=== PATIENT | female | born 1990 | race Caucasian/White ===

== ENCOUNTER 2020-04-20 19:46 | Emergency (ER) | payer OTHER ==
[2020-04-20] MEDS ORDERED: Acetaminophen 500 MG Tab PO ONE (20:01)
[2020-04-20] MEDS ORDERED: Ibuprofen 600 MG Tab PO ONE (20:01)
--- NOTE | 2020-04-20 20:09 | EDM.PDOC ---
ED HPI GENERAL MEDICAL PROBLEM - General Chief Complaint: Upper Extremity Injury/Pain Stated Complaint: RIGHT HAND INJURY Time Seen by Provider: 04/20/20 19:50 Source of Information: Reports: Patient History Limitations: Reports: No Limitations - History of Present Illness INITIAL COMMENTS - FREE TEXT/NARRATIVE: This patient is a 29-year-old female with no pertinent past medical history presenting with injury to her right wrist. Around 1300 hrs. this afternoon, the patient was moving when she accidentally fell and landed on her right wrist with her entire body weight. She presents to the emergency department complaining of pain to the proximal ulnar aspect of the right wrist at the base of the fourth and fifth metacarpals. No self treatment prior to arrival. No other complaints. 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 Denies: Neck Pain, Shoulder Pain, Arm Pain, Back Pain Neurological: Denies: Numbness, Paresthesia, Tingling ED EXAM, GENERAL - Physical Exam Exam: See Below Free Text/Narrative:: Vital signs reviewed. Nursing notes reviewed. Constitutional: Awake, alert, non-distressed Head: Normocephalic, atraumatic Eyes: EOMI, conjunctiva normal, no discharge, no scleral icterus Ears, Nose, Throat: External ears and ears normal, moist oral mucosa Cardiovascular: 2+ right radial pulse, capillary refill less than 2 seconds Pulmonary: normal work of breathing, no accessory muscle use Abdomen/GI: Soft, nontender, nondistended, no guarding or rigidity, no masses Musculoskeletal: No deformities, mild tenderness to palpation over the proximal right fourth and fifth metacarpals and over the right ulnar styloid without gross deformity. No tenderness to palpation at the right anatomic snuffbox. Normal range of motion and movement of the right elbow and shoulder joint. Integumentary: Appropriate color for ethnicity, warm, dry, no pallor or jaundice , no rash Neurologic: Alert, answering questions appropriately, normal speech, no facial droop, moving all extremities well. Sensation intact to light touch to all fingers of the right hand, able to make okay sign, thumbs up, and abduct all fingers of the right hand. Psychiatric: Appropriate mood and affect, normal thought process ED TRAUMA EXTREMITY PROCEDURES - Splinting Right Upper Extremity Pre-Procedure NV Status: Normal Post-Procedure NV Status: Normal Splint Material: Fiberglass, Other (Ortho-Glass and Jefferson bandages) Splint Design: Volar Applied & Form Fitted By: Nurse Provider Post-Splint Application NV Check: NV Status Normal, Good Position Complications: Yes Course - Vital Signs Text/Narrative:: Patient hemodynamically stable, well-appearing, looks nontoxic. Neurovascularly intact in the affected extremity. Will obtain wrist series x- rays, given ibuprofen and acetaminophen. 2015: X-rays returned, concerning for a fracture to the proximal fifth metacarpal. Awaiting radiology read. 2028: X-rays returned showing a small fracture at the base of the fifth metacarpal. Will place a volar slab splint and JEFFERSON bandaging and plan to discharge home. Splinting is pending. 2055: Volar slab splint applied by nursing. CMS intact pre-and post splinting. Pain is well controlled. Patient is stable to discharge home with outpatient orthopedic surgery clinic follow-up in the next few weeks. Recommended over-the -counter extra strength acetaminophen and ibuprofen. Splint care instructions were provided along with ED return precautions. All questions were answered prior to being discharged in good condition. Last Recorded V/S: Last Vital Signs Temp 36.1 C 04/20/20 20:00 Pulse 90 04/20/20 20:00 Resp 18 04/20/20 20:00 BP 135/87 04/20/20 20:00 Pulse Ox 98 04/20/20 20:00 - Orders/Labs/Meds Orders: Active Orders 24 hr Category Date Time Status Splinting [RC] ASDIRECTED Care 04/20/20 20:26 Active Meds: Medications Discontinued Medications Generic Name Dose Route Start Last Admin Trade Name Freq PRN Reason Stop Dose Admin Acetaminophen 1,000 mg 04/20/20 20:01 04/20/20 20:21 Tylenol Extra Strength PO 04/20/20 20:02 1,000 mg ONETIME ONE Administration Ibuprofen 600 mg 04/20/20 20:01 04/20/20 20:21 Motrin PO 04/20/20 20:02 600 mg ONETIME ONE Administration Departure - Departure Time of Disposition: 20:57 Disposition: Home, Self-Care 01 Condition: Good Clinical Impression: Fracture of metacarpal bone Qualifiers: Encounter type: initial encounter Metacarpal bone: fifth Fracture type: closed Metacarpal location: base Fracture alignment: nondisplaced Laterality: right Qualified Code(s): S62.346A - Nondisplaced fracture of base of fifth metacarpal bone, right hand, initial encounter for closed fracture - Discharge Information *PRESCRIPTION DRUG MONITORING PROGRAM REVIEWED*: Not Applicable *COPY OF PRESCRIPTION DRUG MONITORING REPORT IN PATIENT KESHAWN: Not Applicable Instructions: Cast or Splint Care, Adult, [id number], Metacarpal Fracture, [id number] Referrals: [facility] - Orthopaedics [Provider Group] - 2 Weeks (For follow-up fracture care) Forms: ED Department Discharge Additional Instructions: I recommend [id number] acetaminophen and ibuprofen for pain. Please follow-up with the orthopedic surgery clinic in the next 1 to 2 weeks. Return to the emergency department immediately if you have worsening pain or any other concerns. The following information is given to patients seen in the emergency department who are being discharged to home. This information is to outline your options for follow-up care. We provide all patients seen in our emergency department with a follow-up referral. The need for follow-up, as well as the timing and circumstances, are variable depending upon the specifics of your emergency department visit. If you don't have a primary care physician on staff, we will provide you with a referral. We always advise you to contact your personal physician following an emergency department visit to inform them of the circumstance of the visit and for follow-up with them and/or the need for any referrals to a consulting specialist. The emergency department will also refer you to a specialist when appropriate. This referral assures that you have the opportunity for follow-up care with a specialist. All of these measure are taken in an effort to provide you with optimal care, which includes your follow-up. Under all circumstances we always encourage you to contact your private physician who remains a resource for coordinating your care. When calling for follow-up care, please make the office aware that this follow-up is from your recent emergency room visit. If for any reason you are refused follow-up, please contact the [facility] Emergency Department at and asked to speak to the emergency department charge nurse. Sepsis Event Note - Evaluation Sepsis Screening Result: No Definite Risk - Focused Exam Vital Signs: Vital Signs Temp Pulse Resp BP Pulse Ox 04/20/20 20:00 36.1 C 90 18 135/87 98 Date Exam was Performed: 04/20/20 Time Exam was Performed: 20:56 - My Orders Last 24 Hours: My Active Orders 04/20/20 20:26 Splinting [RC] ASDIRECTED - Assessment/Plan Last 24 Hours: My Active Orders 04/20/20 20:26 Splinting [RC] ASDIRECTED
--- NOTE | 2020-04-20 20:23 | CR ---
Right wrist: 3 views of the right wrist were obtained. Comparison: No previous wrist study. Joint spaces are preserved. Minimal calcification is noted off the corner base of the 5th metacarpal. Very minimal cortical avulsion fracture is possible. No additional abnormality is seen. Impression: 1. Possible minimal cortical avulsion fracture off the corner base of the 5th metacarpal. 2. 3 view right wrist exam is otherwise unremarkable. Diagnostic code #3 This report was dictated in MDT
== END 2020-04-20 21:10 | disposition home or self-care (01) ==
LOC: MW.ED 19:46
DX: S62.346A Nondisplaced fracture of base of fifth metacarpal bone, right hand, initial encounter for closed fracture (principal); Z88.5 Allergy status to narcotic agent; W19.XXXA Unspecified fall, initial encounter
CPT/HCPCS: 29125; 73110; 99283; A9270